=== PATIENT | male | born 1930 | race Caucasian/White ===

== ENCOUNTER 2019-07-27 08:15 | Outpatient (CLI) | payer MEDICARE | END 2019-07-27 23:59 | disposition home or self-care (01) | LOC: CVU 08:15 → RAD 23:59 | PROVIDERS: ATTEND Internal Medicine Cardiovascular Disease | DX: R91.8 Other nonspecific abnormal finding of lung field (principal); I08.0 Rheumatic disorders of both mitral and aortic valves; I65.23 Occlusion and stenosis of bilateral carotid arteries; N20.0 Calculus of kidney; K57.30 Diverticulosis of large intestine without perforation or abscess without bleeding; M51.36 Other intervertebral disc degeneration, lumbar region; I10 Essential (primary) hypertension; M47.816 Spondylosis without myelopathy or radiculopathy, lumbar region; K80.20 Calculus of gallbladder without cholecystitis without obstruction | CPT/HCPCS: 71250; 74176; 93880; 94010; 94726; 94729 ==